=== PATIENT | female | born 1985 | race Caucasian/White ===

== ENCOUNTER 2017-02-26 01:09 | Emergency (ER) | payer OTHER ==
[~2017-02-26] VITALS: Ht 170.2 cm; Wt 99.3 kg
[2017-02-26] MEDS ORDERED: Prenatal Vitamin PO (01:19)
[2017-02-26] MEDS ORDERED: METOCLOPRAMIDE INJ 10MG/2ML VIAL (J2765) IV ONE (01:30)
[2017-02-26 02:20] LABS: BASO # 0.1 K/mm3 (0.0-0.2); BASO % 0.6 % (0.0-1.0); EOS # 0.2 K/mm3 (0.0-0.50); EOS % 1.6 % (0.0-3.0); LARGE UNSTAINED CELL # 0.1 K/mm3 (0.0-0.4); LARGE UNSTAINED CELL % 1.1 % (0.0-4.0); LYMPH # 2.3 K/mm3 (1.5-4.5); LYMPH % 19.3 % (24.0-44.0); MEAN CORPUSCULAR HEMOGLOBIN 29.3 pg (27.0-33.0); MEAN CORPUSCULAR HGB CONC 33.9 g/dl (32.0-36.5); MEAN CORPUSCULAR VOLUME 86.5 fl (80.0-96.0); MONO # 0.4 K/mm3 (0.0-0.8); MONO % 3.3 % (0.0-5.0); NEUTROPHILS # 8.8 K/mm3 (1.8-7.7); NEUTROPHILS % 74.2 % (36.0-66.0); PLATELET COUNT, AUTOMATED 237 k/mm3 (150-450); RED CELL DISTRIBUTION WIDTH 12.6 % (11.5-14.5); WHITE BLOOD COUNT 11.8 K/mm3 (4.0-10.0)
[2017-02-26 02:42] LABS: ALBUMIN 3.8 GM/DL (3.2-5.2); ALBUMIN/GLOBULIN RATIO 1.03 (1.00-1.93); ALKALINE PHOSPHATASE 43 U/L (45-117); ALT/SGPT 15 U/L (12-78); ANION GAP 9 MEQ/L (8-16); AST/SGOT 12 U/L (15-37); BILIRUBIN,DIRECT 0.1 MG/DL (0.0-0.2); BILIRUBIN,TOTAL 0.5 MG/DL (0.2-1.0); BLOOD UREA NITROGEN 9 MG/DL (7-18); CALCIUM LEVEL 8.9 MG/DL (8.5-10.1); CARBON DIOXIDE LEVEL 25 MEQ/L (21-32); CHLORIDE LEVEL 104 MEQ/L (98-107); CREATININE FOR GFR 0.58 MG/DL (0.55-1.02); GLOMERULAR FILTRATION RATE > 60.0 (>60); GLUCOSE, FASTING 89 MG/DL (70-105); POTASSIUM SERUM 3.5 MEQ/L (3.5-5.1); SODIUM LEVEL 138 MEQ/L (136-145); TOTAL PROTEIN 7.5 GM/DL (6.4-8.2)
[2017-02-26] MEDS ORDERED: REGL10TA6 PO (04:37)
[2017-02-26 05:08] VITALS: BP 91/55
== END 2017-02-26 05:10 | disposition home or self-care (01) ==
LOC: EDBD 01:09 → M ED 01:45
DX: O21.0 Mild hyperemesis gravidarum (principal); Z3A.00 Weeks of gestation of pregnancy not specified
CPT/HCPCS: 80048; 80076; 81001; 85025; 87086; 96374; 99282; J2765

== ENCOUNTER 2017-05-10 11:13 | Outpatient (RCR) | payer OTHER ==
[~2017-05-10 11:13] MED LIST: Prenatal Vitamin PO; REGL10TA6 PO
[2017-09-12] MEDS ORDERED: TYLE1TAB5 PO (10:52)
[2017-09-15] MEDS ORDERED: MOTR200T44 PO (07:36)
[2017-09-15] MEDS ORDERED: COLA100C5 PO (07:38)
== END 2017-05-13 | disposition home or self-care (01) ==
LOC: M PT 11:13
PROVIDERS: ATTEND Obstetrics & Gynecology
DX: Z51.89 Encounter for other specified aftercare (principal); M25.559 Pain in unspecified hip

== ENCOUNTER 2017-09-02 16:22 | Outpatient (CLI) | payer OTHER ==
[~2017-09-02] VITALS: Ht 170.2 cm; Wt 115.9 kg
[2017-09-02 16:40] VITALS: BP 119/69
[2017-09-02] MEDS ORDERED: ACET50TA PO (16:51)
[2017-09-02 17:27] VITALS: BP 103/58
[2017-09-02] MEDS ORDERED: FIORICET TAB PO ONE (17:45)
[2017-09-12] MEDS ORDERED: TYLE1TAB5 PO (10:52)
[2017-09-15] MEDS ORDERED: MOTR200T44 PO (07:36)
[2017-09-15] MEDS ORDERED: COLA100C5 PO (07:38)
== END 2017-09-02 16:24 | disposition home or self-care (01) ==
LOC: M LDO 16:22
PROVIDERS: ATTEND Obstetrics & Gynecology
DX: O26.893 Other specified pregnancy related conditions, third trimester (principal); Z3A.37 37 weeks gestation of pregnancy; R51 Headache; R42 Dizziness and giddiness; R53.83 Other fatigue